=== PATIENT | male | born 1970 | race Caucasian/White ===

== ENCOUNTER 2018-08-03 10:33 | Emergency (ER) | payer OTHER ==
[~2018-08-03] VITALS: Ht 182.9 cm; Wt 103.4 kg
[2018-08-03] MEDS ORDERED: KETOROLAC TROMETHAMINE 30 MG/ML VIAL IV STA (10:43)
[2018-08-03] MEDS ORDERED: SODIUM CHLORIDE 0.9% 1000ML 1,000 ML IV STA (10:43)
[2018-08-03] MEDS ORDERED: METOCLOPRAMIDE HCL 10 MG/2ML VIAL IV ONE (10:45)
[2018-08-03] MEDS ORDERED: DIPHENHYDRAMINE HCL INJ 50 MG/ML VIAL IV ONE (10:45)
[2018-08-03 11:25] LABS: BASOPHILS # (AUTO) 0.1 (0.0-0.1); BASOPHILS % 0.7 % (0.0-1.0); EOSINOPHILS # (AUTO) 0.1 (0.0-0.4); EOSINOPHILS % 1.3 % (0.0-6.0); HEMATOCRIT 46.7 % (38.2-49.6); HEMOGLOBIN 16.5 g/dL (14.0-18.0); LYMPHOCYTES # (AUTO) 2.2 (1.0-3.2); LYMPHOCYTES % 24.9 % (18.0-39.1); MEAN CORPUSCULAR HEMOGLOBIN 31.4 pg (28-32); MEAN CORPUSCULAR HGB CONC 35.3 g/dL (31-35); MEAN CORPUSCULAR VOLUME 88.8 fL (81-99); MONOCYTES # (AUTO) 0.5 (0.2-0.8); MONOCYTES % 5.9 % (4.4-11.3); NEUTROPHILS # (AUTO) 5.7 (2.1-6.9); NEUTROPHILS % 66.2 % (38.7-80.0); PLATELET COUNT 196 x10e3/uL (140-360); RED BLOOD COUNT 5.26 x10e6/uL (4.3-5.7); RED CELL DISTRIBUTION WIDTH 12.5 % (11.7-14.4)
[2018-08-03 11:35] LABS: INR 0.91; PROTHROMBIN TIME 13.1 seconds (11.9-14.5)
[2018-08-03 11:36] LABS: PARTIAL THROMBOPLASTIN TIME 30.9 seconds (23.8-35.5)
[2018-08-03 11:42] LABS: ALANINE AMINOTRANSFERASE 23 IU/L (0-55); ALBUMIN 4.5 g/dL (3.5-5.0); ALBUMIN/GLOBULIN RATIO 1.2 (0.8-2.0); ALKALINE PHOSPHATASE 102 IU/L (40-150); BLOOD UREA NITROGEN 10 mg/dL (7-26); BUN/CREATININE RATIO 12 (6-25); CALCIUM 10.1 mg/dL (8.4-10.2); CARBON DIOXIDE 25 mmol/L (22-29); CHLORIDE 102 mmol/L (98-107); CREATINE KINASE 103 IU/L (30-200); CREATININE, SERUM 0.83 mg/dL (0.72-1.25); EST GLOMERULAR FILTRATION RATE > 60 ML/MIN (60-); GLUCOSE 95 mg/dL (74-118); MAGNESIUM 2.2 MG/DL (1.3-2.1); SODIUM 138 mmol/L (136-145)
--- NOTE | 2018-08-03 11:50 | Diagnostic Imaging Report ---
EXAMINATION: CHEST SINGLE (PORTABLE) INDICATION: Chest pain. COMPARISON: None FINDINGS: TUBES and LINES: None. LUNGS: Lungs are well inflated. Lungs are clear. There is no evidence of pneumonia or pulmonary edema. PLEURA: No pleural effusion or pneumothorax. HEART AND MEDIASTINUM: The cardiomediastinal silhouette is unremarkable. BONES AND SOFT TISSUES: No acute osseous lesion. Soft tissues are unremarkable. UPPER ABDOMEN: No free air under the diaphragm. IMPRESSION: No acute thoracic abnormality. Signed by: Dr. Cipriano Chaves M.D. on 08/03/2018 11:46 AM
[2018-08-03 11:54] LABS: CREATINE KINASE MB < 1.00 ng/mL (0-4.3)
--- NOTE | 2018-08-03 11:56 | Diagnostic Imaging Report ---
Exam: Head CT without contrast History: Headache Comparison studies: None Technique: Axial images were obtained from the skull base to the vertex. Coronal and sagittal images reconstructed from the axial data. Dose modulation, iterative reconstruction, and/or weight based adjustment of the mA/kV was utilized to reduce the radiation dose to as low as reasonably achievable. Radiation dose: Total DLP: 832 mGy*cm. Estimated effective dose: DLP x 0.015 Intravenous contrast: None Findings: Scalp: No abnormalities. Bones: No fractures, blastic or lytic lesions. Brain sulci: Appropriate for age. Ventricles: Normal in size and configuration. No hydrocephalus. Extra-axial spaces: No masses, no fluid collection. Parenchyma: Subcentimeter hyperdense hemorrhages along the bilateral orbitofrontal gyri, anterior left temporal pole and in the right superior temporal gyrus without mass effect. Largest hemorrhage in the right supratemporal gyrus measures 9 mm and is with mild surrounding vasogenic edema. No acute cortical vascular insults. Sellar/suprasellar region: No abnormalities. Craniocervical junction: Patent foramen magnum. No Chiari one malformation. IMPRESSION: Multiple subcentimeter bilateral frontal and temporal parenchymal hemorrhagic contusions without mass effect. Correlate for history of recent trauma. No other acute intracranial abnormalities. Findings discussed with Dr. Ordonez at 11:48 AM on 07-25. Signed by: Dr. Antonio Knight M.D. on 08/03/2018 11:53 AM
[2018-08-03] MEDS ORDERED: LOTREL 10-20 M1 EACH PO (12:07)
[2018-08-03] MEDS ORDERED: ZOLOFT50 MG PO (12:07)
[2018-08-03] MEDS ORDERED: CLONAZEPAM0.5 MG PO (12:07)
[2018-08-03] MEDS ORDERED: ASPIR 8181 MG PO (12:07)
[2018-08-03] MEDS ORDERED: NEXIUM40 MG PO (12:07)
[2018-08-03] MEDS ORDERED: LIPITOR20 MG PO (12:07)
[2018-08-03] MEDS ORDERED: MORPHINE SULFATE INJ 4 MG/ML INJ IV PRN (13:45)
[2018-08-03 15:02] LABS: AMPHETAMINES SCREEN,URINE NEGATIVE (NEGATIVE); BENZODIAZEPINES SCREEN,URINE NEGATIVE (NEGATIVE); PHENCYCLIDINE SCREEN,URINE NEGATIVE (NEGATIVE)
[2018-08-03 15:15] VITALS: BP 137/80
== END 2018-08-03 15:17 | disposition other institution (70) ==
LOC: ER 10:33
DX: I61.9 Nontraumatic intracerebral hemorrhage, unspecified (principal); R07.89 Other chest pain; I10 Essential (primary) hypertension; E78.5 Hyperlipidemia, unspecified
CPT/HCPCS: 36415; 70450; 71045; 80053; 80307; 82550; 82553; 83735; 84484; 85025; 85610; 85730; 93005; 99284; J1200; J1885; J2270; J2765; J7030

== ENCOUNTER 2021-04-24 09:47 | Observation (INO) | payer BC, OTHER ==
[~2021-04-24] VITALS: Ht 182.9 cm; Wt 112.5 kg
[~2021-04-24 09:47] MED LIST: ASPIR 8181 MG PO; CLONAZEPAM0.5 MG PO; LIPITOR20 MG PO; LOTREL 10-20 M1 EACH PO; NEXIUM40 MG PO; ZOLOFT50 MG PO
[2021-04-24 10:52] LABS: BASOPHILS # (AUTO) 0.1 (0.0-0.1); BASOPHILS % 0.9 % (0.0-1.0); EOSINOPHILS # (AUTO) 0.2 (0.0-0.4); EOSINOPHILS % 3.1 % (0.0-6.0); HEMATOCRIT 44.1 % (38.2-49.6); LYMPHOCYTES # (AUTO) 2.4 (1.0-3.2); LYMPHOCYTES % 37.1 % (18.0-39.1); MEAN CORPUSCULAR HEMOGLOBIN 31.1 pg (28-32); MEAN CORPUSCULAR VOLUME 91.3 fL (81-99); MONOCYTES # (AUTO) 0.5 (0.2-0.8); MONOCYTES % 7.5 % (4.4-11.3); NEUTROPHILS # (AUTO) 3.2 (2.1-6.9); NEUTROPHILS % 50.6 % (38.7-80.0); PLATELET COUNT 204 x10e3/uL (140-360); RED BLOOD COUNT 4.83 x10e6/uL (4.3-5.7); RED CELL DISTRIBUTION WIDTH 12.6 % (11.7-14.4)
[2021-04-24 11:03] LABS: INR 0.9; PROTHROMBIN TIME 12.7 seconds (11.9-14.5)
[2021-04-24 11:04] LABS: PARTIAL THROMBOPLASTIN TIME 29.7 seconds (23.8-35.5)
[2021-04-24 11:12] LABS: ALBUMIN 3.8 g/dL (3.5-5.0); ALBUMIN/GLOBULIN RATIO 1.1 (0.8-2.0); ANION GAP 12.5 mmol/L (8-16); CALCIUM 9.3 mg/dL (8.4-10.2); CREATININE, SERUM 0.85 mg/dL (0.72-1.25); POTASSIUM 3.5 mmol/L (3.5-5.1)
[2021-04-24 11:19] LABS: CREATINE KINASE MB 1.5 ng/mL (0-5.0)
[2021-04-24] MEDS ORDERED: ONDANSETRON HCL INJ 2MG/ML 2ML 2 MG/ML VIAL IV PRN (15:30)
[2021-04-24] MEDS ORDERED: ACETAMINOPHEN 325 MG TAB PO PRN (15:30)
[2021-04-24 15:37] LABS: CHOL/HDL RATIO 2.9 (3.9-4.7)
[2021-04-24] MEDS ORDERED: ENOXAPARIN SOD INJ 40 MG/0.4 ML SYR SC SCH (17:00)
[2021-04-24 17:28] VITALS: BP 151/82
[2021-04-24] MEDS ORDERED: DEXILANT60 MG PO (17:28)
[2021-04-24 17:30] VITALS: BP 151/82
[2021-04-24] MEDS: METOPROLOL TARTRATE 25 MG TAB PO SCH (18:03)
[2021-04-24 19:06] LABS: CREATINE KINASE 126 IU/L (30-200)
[2021-04-24 20:00] VITALS: BP 126/90
[2021-04-24 20:21] VITALS: BP 126/90
[2021-04-24] MEDS ORDERED: ZOLPIDEM TARTRATE 5 MG TAB PO PRN (21:00)
[2021-04-24] MEDS ORDERED: ATORVASTATIN 10 MG TAB PO SCH (21:00)
[2021-04-25] VITALS: BP_SYST 137; BP_SYST 142; BP_DIAS 88; BP_DIAS 94
[2021-04-25 05:14] LABS: BASOPHILS # (AUTO) 0.1 (0.0-0.1); BASOPHILS % 0.7 % (0.0-1.0); EOSINOPHILS # (AUTO) 0.2 (0.0-0.4); EOSINOPHILS % 2.3 % (0.0-6.0); HEMATOCRIT 41.7 % (38.2-49.6); HEMOGLOBIN 14.4 g/dL (14.0-18.0); LYMPHOCYTES # (AUTO) 2.5 (1.0-3.2); LYMPHOCYTES % 33.6 % (18.0-39.1); MEAN CORPUSCULAR HGB CONC 34.5 g/dL (31-35); MEAN CORPUSCULAR VOLUME 89.9 fL (81-99); MONOCYTES # (AUTO) 0.5 (0.2-0.8); MONOCYTES % 7.1 % (4.4-11.3); NEUTROPHILS # (AUTO) 4.1 (2.1-6.9); NEUTROPHILS % 55.5 % (38.7-80.0); PLATELET COUNT 165 x10e3/uL (140-360); RED BLOOD COUNT 4.64 x10e6/uL (4.3-5.7); RED CELL DISTRIBUTION WIDTH 12.3 % (11.7-14.4)
[2021-04-25 05:37] LABS: CALCIUM 8.9 mg/dL (8.4-10.2); CREATININE, SERUM 0.79 mg/dL (0.72-1.25)
[2021-04-25 06:21] LABS: CHOL/HDL RATIO 3.3 (3.9-4.7)
[2021-04-25 08:14] VITALS: BP 10/72
[2021-04-25] MEDS ORDERED: ASPIRIN 81 MG ENTERIC COATED PO SCH (09:00)
[2021-04-25] MEDS ORDERED: PANTOPRAZOLE SOD 40 MG TABEC PO SCH (09:00)
[2021-04-25] MEDS ORDERED: SERTRALINE HCL 50 MG TAB PO SCH ×2 (09:00)
[2021-04-25] MEDS ORDERED: ATORVASTATIN 10 MG TAB PO SCH (09:00)
[2021-04-25] MEDS: METOPROLOL TARTRATE 25 MG TAB PO SCH ×2 (10:00→17:00)
[2021-04-25 10:35] VITALS: BP 130/72
[2021-04-25 11:44] VITALS: BP 126/85
[2021-04-25] MEDS ORDERED: CLONAZEPAM 0.5 MG TAB PO PRN (12:45)
[2021-04-25] MEDS ORDERED: LOPRESSOR25 MG PO (14:12)
[2021-04-25 15:18] VITALS: BP 115/73
[2021-04-25] MEDS ORDERED: XARELTO20 MG PO (15:49)
[2021-04-25] MEDS ORDERED: LOTREL 10-20 M1 EACH PO (18:01)
[2021-04-25] MEDS ORDERED: ATORVASTATIN 20 MG TAB PO SCH (21:00)
== END 2021-04-25 18:41 | disposition home or self-care (01) ==
LOC: ER 10:34 → ERHOLD 12:45 → MED/SURG 16:50
PROVIDERS: ADMIT Internal Medicine; ATTEND Internal Medicine
DX: R07.89 Other chest pain (principal); I48.91 Unspecified atrial fibrillation; I10 Essential (primary) hypertension; E78.5 Hyperlipidemia, unspecified; K21.9 Gastro-esophageal reflux disease without esophagitis; Z87.891 Personal history of nicotine dependence; E66.9 Obesity, unspecified; Z68.33 Body mass index [BMI] 33.0-33.9, adult; Z72.89 Other problems related to lifestyle
CPT/HCPCS: 36415 ×2; 71045; 80048; 80053; 80061 ×2; 82550 ×2; 82553 ×2; 82948; 83036; 84484 ×2; 85025 ×2; 85610; 85730; 93005; 93306; 99285; G0378 ×2; J1650; S0164